=== PATIENT | female | born 1955 ===

== ENCOUNTER 2022-09-14 12:43 | Emergency (ER) | payer OTHER ==
[~2022-09-14] VITALS: Ht 157.5 cm; Wt 49.9 kg
[2022-09-14] MEDS ORDERED: GLUMETZA500 MG PO (14:35)
[2022-09-14] MEDS ORDERED: GLIPIZIDE XL5 MG PO (14:36)
== END 2022-09-15 06:52 | disposition home or self-care (01) ==
LOC: ER 12:43
DX: R14.0 Abdominal distension (gaseous) (principal); C48.2 Malignant neoplasm of peritoneum, unspecified; R18.8 Other ascites